=== PATIENT | female | born 1980 | race Hispanic/Latino ===

== ENCOUNTER 2018-07-30 19:16 | Emergency (ER) | payer OTHER ==
[2018-07-31 01:53] VITALS: BP 115/77; PULSE 96; RESP 17; TEMP 98.4; O2SAT 100
--- NOTE | 2018-08-02 11:04 | OBHP ---
Datetime: 07/30/2018 19:45 IP Adm Impression: , intrauterine ; No Active Labor IP Chief Complaint Other: epigastric discomfort IP Adm Impression Other: Epigastric disomfort IP Admit Plan: Observation/Evaluation Admit Comment, IP Provider: 37yo @ 32w4d reports here to be evaluated because she had an epigas tric discomfort. She denies any vomiting or discomfort. PNC-Dr Zafar in [place] Uncomplicated course O; Afebrile Heart: RRR CHest:CTA B/L Abd: Soft, NT, BS- present FHR- Category 1 TOCO- None SVE: Deferred Assessment IUP at 32wks Epigastric discomfort. No Abnormal Findings on Exam NST- Reactive. Plan: D/C Home Follow up with OB doctor labor precautions reviewed with the patient. Pelvic Type - PN: Adequate Extremities - PN: Normal Abdomen - PN: Normal Back - PN: Normal Breast - PN: Normal Lungs - PN: Normal Heart - PN: Normal Thyroid - PN: Normal Neurologic - PN: Normal HEENT - PN: Normal General - PN: Normal Presentation-Admit: Vertex FHR - Baseline A Provider: 140 Membranes, Provider: Intact Gestation - Est Wks by US: 32.4 IP Chief Complaint: Other NICHD Variability Prov Fetus A: Moderate 6-25bpm NICHD Accel Fetus A IP Provider: [id number] FHR Category Provider Fetus A: Category I NICHD Decel Fetus A IP Provider: None Genitourinary Exam: Normal DTRs - PN: Normal
== END 2018-07-30 20:10 | disposition home or self-care (01) ==
LOC: H.EROB2 19:16
DX: O26.93 Pregnancy related conditions, unspecified, third trimester (principal); R10.2 Pelvic and perineal pain; Z3A.32 32 weeks gestation of pregnancy